=== PATIENT | female | born 1940 | race Caucasian/White ===

== ENCOUNTER 2021-07-17 20:28 | Inpatient (IN) | payer MEDICARE ==
[~2021-07-17 20:28] MED LIST: Iopamidol-370 76% 500 ML 1 ML ONE
[2021-07-17 21:00] LABS: #Basophils 0.1 thou/uL (0.0-0.2); #Eosinphils 0.3 thou/uL (0.0-0.7); #Lymphocytes 2.4 thou/uL (1.20-3.40); #Monocytes 1.1 thou/uL (0.11-0.59); #Neutrophils 9.5 thou/uL (1.40-6.50); %Basophils 0.4 % (0.0-1.0); %Eosinophils 1.9 % (0.0-10.0); %Monocytes 8.4 % (0.0-10.0); %Neutrophils 71.3 % (42.0-75.0); Hemoglobin 14.8 g/dL (12.0-16.0); Mean Corpuscular HGB CONC 33.9 g/dL (32.0-36.0); Mean Corpuscular Volume 88.5 fL (78.0-98.0); Mean Platelet Volume 8.7 fL (7.4-10.4); Platelet Count 191 thou/uL (130-400); Red Blood Cell (RBC) Count 4.93 mill/uL (4.20-5.40); White Blood Cell (WBC) Count 13.4 thou/uL (4.8-10.8)
[2021-07-17] MEDS ORDERED: Morphine 4 MG/ML VIAL ONE (22:01)
[2021-07-17 22:06] LABS: ALT (SGPT) 21 U/L (8-55); AST (SGOT) 26 U/L (5-34); Albumin 3.8 g/dL (3.4-4.8); Alkaline Phosphatase 106 U/L (40-110); Anion Gap 20 mmol/L (10-20); BUN (Urea Nitrogen) 29 mg/dL (9.8-20.1); Bilirubin, Total 0.7 mg/dL (0.2-1.2); Calc. Creatinine Clearance 0 mL/min (70-130); Calcium 10.4 mg/dL (7.8-10.44); Carbon Dioxide 20 mmol/L (23-31); Chloride 102 mmol/L (98-107); Globulin 3.6 g/dL (2.4-3.5); Glucose 145 mg/dL (83-110); Potassium 3.3 mmol/L (3.5-5.1); Protein, Total 7.4 g/dL (5.8-8.1); Sodium 139 mmol/L (136-145)
[2021-07-18 00:48] VITALS: BMI 36.5
[2021-07-18 02:27] LABS: SARS-CoV-2 NAA Rapid Test Not Detected (NotDetected)
[2021-07-18] MEDS ORDERED: Dextrose 5% in Water 1,000 ML IV PRN (03:17)
[2021-07-18] MEDS ORDERED: Cyclobenzaprine 10 MG TAB PO PRN (03:17)
[2021-07-18] MEDS ORDERED: Morphine 2 MG/ML VIAL SLOW IVP PRN (03:17)
[2021-07-18] MEDS ORDERED: traMADol HCl 50 MG TAB PO PRN ×2 (03:17)
[2021-07-18] MEDS ORDERED: Ondansetron PF 4 MG/2 ML Vial IVP PRN (03:17)
[2021-07-18] MEDS ORDERED: Ondansetron ODT 4 MG TAB PO PRN (03:17)
[2021-07-18] MEDS ORDERED: hydrALAZINE 20 MG/ML VIAL SLOW IVP PRN (03:17)
[2021-07-18] MEDS ORDERED: Dextrose 50% Abboject 50 ML SYRINGE SLOW IVP PRN (03:17)
[2021-07-18] MEDS ORDERED: Acetaminophen 325 MG TAB ONE ×2 (03:20→11:13)
[2021-07-18] MEDS ORDERED: Morphine 4 MG/ML VIAL SLOW IVP PRN (03:30)
[2021-07-18] MEDS: Sodium Chloride 0.9% 1,000 ML IV SCH ×3 (03:34→22:46)
[2021-07-18 05:37] LABS: #Eosinphils 0.1 thou/uL (0.0-0.7); #Lymphocytes 1.7 thou/uL (1.20-3.40); #Neutrophils 7.4 thou/uL (1.40-6.50); %Basophils 0.4 % (0.0-1.0); %Lymphocytes 16.2 % (21.0-51.0); %Monocytes 9.8 % (0.0-10.0); %Neutrophils 72.5 % (42.0-75.0); Hemoglobin 12.8 g/dL (12.0-16.0); Mean Corpuscular HGB CONC 34.3 g/dL (32.0-36.0); Mean Corpuscular Hemoglobin 30.3 pg (27.0-31.0); Mean Corpuscular Volume 88.2 fL (78.0-98.0); Mean Platelet Volume 8.8 fL (7.4-10.4); Platelet Count 168 thou/uL (130-400); RBC Distribution Width 11.8 % (11.5-14.5); Red Blood Cell (RBC) Count 4.24 mill/uL (4.20-5.40); White Blood Cell (WBC) Count 10.3 thou/uL (4.8-10.8)
[2021-07-18 05:39] LABS: Anion Gap 15 mmol/L (10-20); BUN (Urea Nitrogen) 24 mg/dL (9.8-20.1); Calc. Creatinine Clearance 57 mL/min (70-130); Calcium 9.5 mg/dL (7.8-10.44); Carbon Dioxide 22 mmol/L (23-31); Chloride 104 mmol/L (98-107); Glucose 187 mg/dL (83-110); Potassium 3.9 mmol/L (3.5-5.1); Sodium 137 mmol/L (136-145)
[2021-07-18] MEDS: Acetaminophen 325 MG TAB PO SCH ×4 (05:43→22:47)
[2021-07-18 07:43] LABS: Bilirubin Negative (Negative); Blood, Urine Large (Negative); Glucose, Urine (Dipstick) Negative (Negative); Ketone, Urine Negative (Negative); Leukocyte Moderate (Negative); Nitrite Negative (Negative); Protein, Urine (Dipstick) 100 mg/dL (Neg-Trace); Urobilinogen 0.2 mg/dL (Less than 2)
[2021-07-18 08:08] LABS: Clarity Turbid (Clear); pH, Urine Greater/Equal 9.0 (5.0-9.0)
[2021-07-18 08:09] LABS: Bacteria/HPF 4+ HPF (None Seen); RBC/HPF Greater than 50 HPF (0-3); Squamous Epithelial 0-3 HPF (0-3)
[2021-07-18 08:10] LABS: Triple Phosphate Crystal 1+ HPF (None Seen)
[2021-07-18] MEDS ORDERED: Famotidine 20 MG TAB ONE (08:26)
[2021-07-18] MEDS ORDERED: Sulfameth/Trimethoprim DS 800-160mg TAB ONE (08:26)
[2021-07-18] MEDS: Famotidine 20 MG TAB PO SCH (08:52)
[2021-07-18] MEDS: Sulfameth/Trimethoprim DS 800-160mg TAB PO SCH ×2 (08:52→20:27)
[2021-07-18] MEDS ORDERED: Acetaminophen 500 MG TAB ONE (11:10)
[2021-07-18] MEDS ORDERED: HumaLOG 300 UNITS/3 ML VIAL SC PRN ×2 (15:54)
[2021-07-18] MEDS ORDERED: Miconazole 2% Vaginal Cream 45 GM TUBE VAG SCH (21:00)
[2021-07-19] MEDS: Sodium Chloride 0.9% 1,000 ML IV SCH ×2 (04:39→14:01)
[2021-07-19] MEDS: Acetaminophen 325 MG TAB PO SCH ×4 (05:01→17:22)
[2021-07-19] MEDS: Famotidine 20 MG TAB PO SCH (08:38)
[2021-07-19] MEDS: Sulfameth/Trimethoprim DS 800-160mg TAB PO SCH (08:38)
[2021-07-19] MEDS ORDERED: Apixaban 2.5 MG TAB PO SCH (09:00)
[2021-07-19] MEDS ORDERED: DULoxetine 60 MG CAP PO SCH (09:00)
[2021-07-19] MEDS ORDERED: Furosemide 40 MG TAB PO SCH (09:00)
[2021-07-19] MEDS ORDERED: FLU VACC QS2021-22(65YR UP)/PF 240 MCG/0.7 ML SYRINGE IM ONE (09:00)
[2021-07-19] MEDS ORDERED: Carvedilol 25 MG TAB PO SCH ×2 (09:30→17:00)
[2021-07-19] MEDS ORDERED: Losartan 25 MG TAB PO SCH (09:30)
[2021-07-19] MEDS ORDERED: Digoxin 0.25 MG TAB PO SCH (21:00)
[2021-07-19 21:11] VITALS: BP 167/81; TEMP 97.5
[2021-07-20] MEDS ORDERED: Losartan 25 MG TAB PO SCH (09:00)
== END 2021-07-19 20:45 | disposition home or self-care (01) | DRG 552 ==
LOC: ERS 20:28 → INTOOBSV 22:31 → ERHOLD 22:31 → SURG A 07-18 16:27 → OBSVTOIN 07-19 17:12
PROVIDERS: ADMIT Specialist; ATTEND Surgery
DX: S12.500A Unspecified displaced fracture of sixth cervical vertebra, initial encounter for closed fracture (principal); S27.322A Contusion of lung, bilateral, initial encounter; S22.048A Other fracture of fourth thoracic vertebra, initial encounter for closed fracture; E11.9 Type 2 diabetes mellitus without complications; E78.00 Pure hypercholesterolemia, unspecified; F32.9 Major depressive disorder, single episode, unspecified; I48.91 Unspecified atrial fibrillation; Z20.822 Contact with and (suspected) exposure to COVID-19; Z95.0 Presence of cardiac pacemaker; Z90.49 Acquired absence of other specified parts of digestive tract; Z79.01 Long term (current) use of anticoagulants; Z79.4 Long term (current) use of insulin
CPT/HCPCS: 36415; 36416; 70450; 71045; 71260; 72125; 74177; 80048; 80053; 81001; 85025; 86850; 86900; 86901; 87077; 87086; 87186; 94640; 96374; 96375; 96376; G0378; G0390; J0360; J2270; J7050; J7620; U0002